=== PATIENT | female | born 1940 | race Caucasian/White ===

== ENCOUNTER 2024-11-25 14:46 | Inpatient (IN) | payer MEDICARE, OTHER ==
[~2024-11-25] VITALS: Ht 170.2 cm; Wt 81.6 kg
[2024-11-25] MEDS ORDERED: METF-866 PO (15:35)
[2024-11-25] MEDS ORDERED: HYDR100T27 PO (15:35)
[2024-11-25] MEDS ORDERED: DILT-2 PO (15:35)
[2024-11-25] MEDS ORDERED: MONT10TA33 PO (15:35)
[2024-11-25] MEDS ORDERED: VALS160T29 PO (15:35)
[2024-11-25] MEDS ORDERED: HYDR25TA86 PO (15:35)
[2024-11-25] MEDS ORDERED: CELE-85 PO (15:35)
[2024-11-25] MEDS ORDERED: OMEP1CAP25 PO (15:35)
[2024-11-25] MEDS ORDERED: FAMO40TA7 PO (15:35)
[2024-11-25] MEDS ORDERED: NEBI5TAB8 PO (15:35)
[2024-11-25] MEDS ORDERED: AZIL40TA PO (15:35)
[2024-11-25] MEDS ORDERED: APIX5TAB PO (15:35)
[2024-11-25] MEDS ORDERED: LIDO35.4 TP (15:35)
[2024-11-25] MEDS ORDERED: TRAM50TA2 PO (15:35)
[2024-11-25] MEDS ORDERED: GLIM2TAB PO (15:35)
[2024-11-25] MEDS ORDERED: MEMA14CA5 PO (15:35)
[2024-11-25] MEDS ORDERED: SITA100T PO (15:35)
[2024-11-25] MEDS ORDERED: GEMTESA PO (15:35)
[2024-11-25 16:10] LABS: BASOPHILS % (AUTO) 0.7 % (0.0-2.0); EOSINOPHILS # (AUTO) 0.2 K/uL (0.0-0.7); EOSINOPHILS % (AUTO) 3.1 % (0.0-7.0); HEMATOCRIT 31.1 % (31.2-41.9); HEMOGLOBIN 10.5 g/dL (10.9-14.3); LYMPHOCYTES # (AUTO) 2.2 K/uL (0.8-4.8); LYMPHOCYTES % (AUTO) 34.9 % (20.5-51.5); MEAN CORPUSCULAR HEMOGLOBIN 32.5 uug (24.7-32.8); MEAN CORPUSCULAR HGB CONC 34 g/dL (32.3-35.6); MEAN CORPUSCULAR VOLUME 96.2 fL (75.5-95.3); MONOCYTES # (AUTO) 0.7 K/uL (0.1-1.30); MONOCYTES % (AUTO) 11.2 % (0.0-11.0); NEUTROPHILS # (AUTO) 3.1 K/uL (1.8-8.9); NEUTROPHILS % (AUTO) 50.1 % (38.5-71.5); PLATELET COUNT (AUTO) 160 K/uL (179-408); RED BLOOD CELL COUNT(AUTO) 3.24 MIL/uL (3.63-4.92); RED CELL DISTRIBUTION WIDTH 13.7 % (12.3-17.7); WHITE BLOOD COUNT (AUTO) 6.2 K/uL (3.8-11.8)
[2024-11-25 16:13] LABS: DIFFERENTIAL COMMENT 1
[2024-11-25 16:15] LABS: CALCIUM 8.7 mg/dL (8.5-10.1); CARBON DIOXIDE 26 mmol/L (21-32); CHLORIDE 108 mmol/L (98-107); CREATININE 1.3 mg/dL (0.6-1.3); GLUCOSE 83 mg/dL (74-106); POTASSIUM 3.9 mmol/L (3.5-5.1); SODIUM SERUM 144 mmol/L (136-145); UREA NITROGEN, BLOOD 33 mg/dL (7-18)
[2024-11-25 16:26] LABS: ALANINE AMINOTRANSFERASE 17 U/L (14-59); ALBUMIN 3.4 g/dL (3.4-5.0); ALKALINE PHOSPHATASE 62 U/L (50-136); ASPARTATE AMINOTRANSFERASE 17 U/L (15-37); BILIRUBIN,DIRECT 0.1 mg/dL (0.0-0.2); BILIRUBIN,TOTAL 0.4 mg/dL (0.2-1.0); TOTAL PROTEIN, SERUM 6.4 g/dL (6.4-8.2)
[2024-11-25] MEDS: METOCLOPRAMIDE HCL 10 MG/2 ML VIAL IV ONE (17:16)
[2024-11-25] MEDS: MORPHINE SULFATE 2 MG/1 ML DISP.SYRIN IV ONE (17:16)
[2024-11-25] MEDS ORDERED: ACETAMINOPHEN 500 MG TABLET ONE (17:36)
[2024-11-25] MEDS: ACETAMINOPHEN 500 MG TABLET PO ONE ×2 (17:46)
[2024-11-25] MEDS ORDERED: TEMAZEPAM 15 MG CAPSULE PO PRN (21:00)
[2024-11-25] MEDS ORDERED: DOCUSATE SODIUM 250 MG CAPSULE PO SCH (21:00)
[2024-11-25] MEDS ORDERED: ONDANSETRON 4 MG/2 ML VIAL IV PRN (21:00)
[2024-11-25 21:03] VITALS: BP 154/64; TEMP 97.9; O2SAT 98
[2024-11-25] MEDS: APIXABAN 5 MG TABLET PO SCH (21:33)
[2024-11-25] MEDS: TRAMADOL HCL 50 MG TABLET PO PRN (21:40)
[2024-11-25] MEDS: HYDROCODONE/APAP 5-325MG TABLET PO PRN (22:50)
[2024-11-26 00:11] VITALS: BP 169/60; TEMP 97.8; O2SAT 96
[2024-11-26 04:31] VITALS: BP 166/71; TEMP 97.8; O2SAT 97
[2024-11-26] MEDS: hydrALAZINE HCL 20 MG/1 ML VIAL IV PRN (05:04)
[2024-11-26 07:35] LABS: BASOPHILS % (AUTO) 0.5 % (0.0-2.0); EOSINOPHILS # (AUTO) 0.2 K/uL (0.0-0.7); EOSINOPHILS % (AUTO) 3.4 % (0.0-7.0); HEMATOCRIT 31.1 % (31.2-41.9); HEMOGLOBIN 10.7 g/dL (10.9-14.3); LYMPHOCYTES # (AUTO) 1.9 K/uL (0.8-4.8); LYMPHOCYTES % (AUTO) 35.8 % (20.5-51.5); MEAN CORPUSCULAR HEMOGLOBIN 32.5 uug (24.7-32.8); MEAN CORPUSCULAR HGB CONC 35 g/dL (32.3-35.6); MEAN CORPUSCULAR VOLUME 94.1 fL (75.5-95.3); MONOCYTES # (AUTO) 0.5 K/uL (0.1-1.30); MONOCYTES % (AUTO) 9.8 % (0.0-11.0); NEUTROPHILS # (AUTO) 2.6 K/uL (1.8-8.9); NEUTROPHILS % (AUTO) 50.5 % (38.5-71.5); PLATELET COUNT (AUTO) 155 K/uL (179-408); WHITE BLOOD COUNT (AUTO) 5.2 K/uL (3.8-11.8)
[2024-11-26 07:39] LABS: DIFFERENTIAL COMMENT 1
[2024-11-26 07:58] VITALS: BP 138/63; TEMP 98; O2SAT 97
[2024-11-26 08:10] LABS: IRON, SERUM 53 ug/dL (50-175)
[2024-11-26 08:16] LABS: ALANINE AMINOTRANSFERASE 18 U/L (14-59); ALBUMIN 3.5 g/dL (3.4-5.0); ALKALINE PHOSPHATASE 56 U/L (50-136); ASPARTATE AMINOTRANSFERASE 15 U/L (15-37); BILIRUBIN,TOTAL 0.5 mg/dL (0.2-1.0); CALCIUM 8.9 mg/dL (8.5-10.1); CARBON DIOXIDE 25 mmol/L (21-32); CHLORIDE 107 mmol/L (98-107); CHOLESTEROL 191 mg/dL (<200); CREATININE 1.1 mg/dL (0.6-1.3); GLUCOSE 90 mg/dL (74-106); HDL CHOLESTEROL 49 mg/dL (40-60); MAGNESIUM 1.9 mg/dL (1.8-2.4); NT-PRO BNP 1722 pg/mL (0-125); PHOSPHOROUS 3.5 mg/dL (2.5-4.9); POTASSIUM 3.1 mmol/L (3.5-5.1); SODIUM SERUM 142 mmol/L (136-145); TOTAL PROTEIN, SERUM 6.6 g/dL (6.4-8.2); TRIGLYCERIDES 162 MG/DL (30-150); UREA NITROGEN, BLOOD 28 mg/dL (7-18)
[2024-11-26] MEDS: MEMANTINE HCL 5 MG TABLET PO SCH (08:25)
[2024-11-26] MEDS: CELECOXIB 200 MG CAPSULE PO SCH (08:25)
[2024-11-26] MEDS: GLIMEPIRIDE 2 MG TABLET PO SCH (08:25)
[2024-11-26] MEDS: FAMOTIDINE 20 MG TABLET PO SCH (08:25)
[2024-11-26] MEDS: DILTIAZEM HCL CD 120 MG CAP.SR.24H PO SCH (08:27)
[2024-11-26] MEDS: VALSARTAN 160 MG TABLET PO SCH (08:46)
[2024-11-26 08:58] LABS: THYROID STIMULATING HORMONE 5.025 mIU/mL (0.358-3.740)
[2024-11-26] MEDS ORDERED: hydrALAZINE HCL 25 MG TABLET PO SCH (09:00)
[2024-11-26] MEDS ORDERED: LIDOCAINE 5% OINT 35.44 GM TUBE TP SCH (09:00)
[2024-11-26] MEDS ORDERED: LIDOCAINE 5% PATCH TD SCH (09:00)
[2024-11-26] MEDS ORDERED: MEMANTINE HCL PO SCH (09:00)
[2024-11-26] MEDS ORDERED: LIDOCAINE 5% PATCH TD PRN (09:00)
[2024-11-26 11:41] VITALS: BP 141/61; TEMP 98.4; O2SAT 97
[2024-11-26] MEDS: POTASSIUM CHLORIDE 20 MEQ TAB.PRT.SR PO ONE (11:53)
[2024-11-26] MEDS: ACETAMINOPHEN 325 MG TABLET PO PRN (15:20)
[2024-11-26 16:53] VITALS: BP 133/78; TEMP 98.5; O2SAT 95
[2024-11-26] MEDS: METFORMIN XR 500 MG TAB.SR.24H PO SCH (17:16)
[2024-11-26] MEDS: MONTELUKAST SODIUM 10 MG TABLET PO SCH (17:51)
[2024-11-26] MEDS ORDERED: METFORMIN XR 500 MG TAB.SR.24H PO SCH ×2 (18:00)
[2024-11-26] MEDS: VITAMINS A AND D OINT 42 GM TUBE TP PRN (18:03)
[2024-11-26 19:48] VITALS: BP 152/55; TEMP 98.1; O2SAT 94
[2024-11-26] MEDS: DOCUSATE SODIUM 250 MG CAPSULE PO SCH (21:00)
[2024-11-26] MEDS: hydrALAZINE HCL 25 MG TABLET PO SCH (21:00)
[2024-11-27 00:11] VITALS: BP 140/54; TEMP 98.5; O2SAT 95
[2024-11-27 04:39] VITALS: BP 121/55; TEMP 97.5; O2SAT 97
[2024-11-27 07:18] LABS: BASOPHILS % (AUTO) 0.5 % (0.0-2.0); EOSINOPHILS # (AUTO) 0.2 K/uL (0.0-0.7); EOSINOPHILS % (AUTO) 3.1 % (0.0-7.0); HEMATOCRIT 31.3 % (31.2-41.9); HEMOGLOBIN 10.8 g/dL (10.9-14.3); LYMPHOCYTES # (AUTO) 1.7 K/uL (0.8-4.8); LYMPHOCYTES % (AUTO) 29.6 % (20.5-51.5); MEAN CORPUSCULAR HEMOGLOBIN 32.8 uug (24.7-32.8); MEAN CORPUSCULAR HGB CONC 35 g/dL (32.3-35.6); MEAN CORPUSCULAR VOLUME 94.8 fL (75.5-95.3); MONOCYTES # (AUTO) 0.6 K/uL (0.1-1.30); NEUTROPHILS # (AUTO) 3.1 K/uL (1.8-8.9); NEUTROPHILS % (AUTO) 55.8 % (38.5-71.5); PLATELET COUNT (AUTO) 168 K/uL (179-408); WHITE BLOOD COUNT (AUTO) 5.6 K/uL (3.8-11.8)
[2024-11-27 07:38] LABS: CALCIUM 9.1 mg/dL (8.5-10.1); CARBON DIOXIDE 24 mmol/L (21-32); CHLORIDE 106 mmol/L (98-107); CREATININE 1.2 mg/dL (0.6-1.3); GLUCOSE 77 mg/dL (74-106); MAGNESIUM 1.8 mg/dL (1.8-2.4); PHOSPHOROUS 3.4 mg/dL (2.5-4.9); POTASSIUM 4.1 mmol/L (3.5-5.1); SODIUM SERUM 141 mmol/L (136-145); UREA NITROGEN, BLOOD 30 mg/dL (7-18)
[2024-11-27 07:43] VITALS: BP 148/76; TEMP 97.8; O2SAT 100
[2024-11-27 07:48] LABS: DIFFERENTIAL COMMENT 1
[2024-11-27] MEDS: GLIMEPIRIDE 2 MG TABLET PO SCH (08:34)
[2024-11-27] MEDS: CELECOXIB 100 MG CAPSULE PO SCH (08:34)
[2024-11-27 11:57] VITALS: BP 130/93; TEMP 97.4; O2SAT 100
[2024-11-27] MEDS ORDERED: CELE100C PO (13:31)
[2024-11-27] MEDS ORDERED: HYDR-4077 PO (13:31)
[2024-11-27] MEDS ORDERED: ACET325T53 PO (13:31)
[2024-11-27] MEDS ORDERED: DOCU250C14 PO (13:31)
[2024-11-27] MEDS ORDERED: TEMA15CA PO (13:31)
[2024-11-27] MEDS ORDERED: METF-886 PO (13:31)
[2024-11-27] MEDS ORDERED: VITS42.53 TP (13:31)
[2024-11-27] MEDS ORDERED: MEMA10TA PO (15:55)
[2024-11-27] MEDS ORDERED: GLIM2TAB31 PO (16:01)
[2024-11-27] MEDS ORDERED: LIDO30AD10 TD (16:58)
[2024-11-27] MEDS ORDERED: METFORMIN XR 500 MG TAB.SR.24H PO SCH (18:00)
== END 2024-11-27 15:20 | DRG 913 ==
LOC: ER 14:46 → TELE3 19:54
PROVIDERS: ADMIT Internal Medicine; ATTEND Internal Medicine
DX: S09.8XXA Other specified injuries of head, initial encounter (principal); G92.8 Other toxic encephalopathy; N17.0 Acute kidney failure with tubular necrosis; I48.20 Chronic atrial fibrillation, unspecified; D68.59 Other primary thrombophilia; F03.93 Unspecified dementia, unspecified severity, with mood disturbance; I10 Essential (primary) hypertension; I48.91 Unspecified atrial fibrillation; R42 Dizziness and giddiness; W19.XXXA Unspecified fall, initial encounter; Y92.89 Other specified places as the place of occurrence of the external cause; R51.9 Headache, unspecified; E66.9 Obesity, unspecified; Z68.28 Body mass index [BMI] 28.0-28.9, adult; R26.81 Unsteadiness on feet; E87.6 Hypokalemia; D53.9 Nutritional anemia, unspecified; M15.9 Polyosteoarthritis, unspecified; E11.9 Type 2 diabetes mellitus without complications; G89.29 Other chronic pain; I45.10 Unspecified right bundle-branch block; E03.9 Hypothyroidism, unspecified; E78.5 Hyperlipidemia, unspecified; Z79.01 Long term (current) use of anticoagulants; Z74.09 Other reduced mobility; Z79.84 Long term (current) use of oral hypoglycemic drugs; Z91.012 Allergy to eggs; M19.012 Primary osteoarthritis, left shoulder
CPT/HCPCS: 36415; 70450; 71045; 82378; 83550; 83735; 84100; 84443; 85025; 85730; 93880; A9150; G0378; J0360

== ENCOUNTER 2024-11-27 10:55 | Inpatient (IN) | payer MEDICARE, OTHER ==
[~2024-11-27] VITALS: Ht 154.9 cm; Wt 81.6 kg
[~2024-11-27 10:55] MED LIST: APIX5TAB PO; AZIL40TA PO; CELE-85 PO; DILT-2 PO; FAMO40TA7 PO; GEMTESA PO; GLIM2TAB PO; HYDR100T27 PO; LIDO35.4 TP; MEMA14CA5 PO; METF-866 PO; MONT10TA33 PO; NEBI5TAB8 PO; OMEP1CAP25 PO; SITA100T PO; TRAM50TA2 PO; VALS160T29 PO
[2024-11-27 11:21] VITALS: BP 148/76; TEMP 97.8
[2024-11-27 12:01] VITALS: BP 148/76; TEMP 97.8
[2024-11-27] MEDS ORDERED: VITS42.53 TP (13:31)
[2024-11-27] MEDS ORDERED: TEMA15CA PO (13:31)
[2024-11-27] MEDS ORDERED: ACET325T53 PO (13:31)
[2024-11-27] MEDS ORDERED: METF-886 PO (13:31)
[2024-11-27] MEDS ORDERED: HYDR-4077 PO (13:31)
[2024-11-27] MEDS ORDERED: DOCU250C14 PO (13:31)
[2024-11-27] MEDS ORDERED: CELE100C PO (13:31)
[2024-11-27 15:45] VITALS: BP 144/55; TEMP 97.6; O2SAT 95
[2024-11-27] MEDS ORDERED: MEMA10TA PO (15:55)
[2024-11-27] MEDS ORDERED: GLIM2TAB31 PO (16:01)
[2024-11-27] MEDS ORDERED: TEMAZEPAM 15 MG CAPSULE PO PRN (16:45)
[2024-11-27] MEDS ORDERED: ACETAMINOPHEN 325 MG TABLET-SA PATIENTS-PAIN ONLY PO PRN (16:45)
[2024-11-27] MEDS ORDERED: LIDOCAINE 5% OINT 35.44 GM TUBE TP PRN (16:45)
[2024-11-27] MEDS ORDERED: LIDO30AD10 TD (16:58)
[2024-11-27] MEDS ORDERED: MEMANTINE HCL 10 MG TABLET PO SCH (17:00)
[2024-11-27] MEDS ORDERED: LIDOCAINE 5% PATCH TD PRN (17:00)
[2024-11-27] MEDS: METFORMIN XR 500 MG TAB.SR.24H PO SCH (18:04)
[2024-11-27] MEDS: MEMANTINE HCL 5 MG TABLET PO SCH (18:05)
[2024-11-27] MEDS: MONTELUKAST SODIUM 10 MG TABLET PO SCH (18:05)
[2024-11-27] MEDS: APIXABAN 5 MG TABLET PO SCH (18:08)
[2024-11-27] MEDS: hydrALAZINE HCL 50 MG TABLET PO SCH (18:12)
[2024-11-27] MEDS ORDERED: ZOLPIDEM 5 MG TABLET PO PRN ×2 (18:15→22:00)
[2024-11-27 19:53] VITALS: BP 122/59; TEMP 97.9; O2SAT 96
[2024-11-27] MEDS: DOCUSATE SODIUM 250 MG CAPSULE PO SCH (21:24)
[2024-11-27] MEDS: CELECOXIB 100 MG CAPSULE PO SCH (21:24)
[2024-11-27] MEDS: MIRTAZAPINE 15 MG TABLET PO SCH (21:25)
[2024-11-28 06:32] VITALS: BP 164/62; TEMP 97.4; O2SAT 98
[2024-11-28] MEDS: GLIMEPIRIDE 2 MG TABLET PO SCH (07:43)
[2024-11-28] MEDS: VALSARTAN 160 MG TABLET PO SCH (08:06)
[2024-11-28] MEDS: FAMOTIDINE 20 MG TABLET PO SCH (08:10)
[2024-11-28] MEDS: DILTIAZEM HCL CD 120 MG CAP.SR.24H PO SCH (08:10)
[2024-11-28 08:17] VITALS: BP 165/69; TEMP 97.5; O2SAT 98
[2024-11-28] MEDS: ACETAMINOPHEN 325 MG TABLET PO PRN (15:23)
[2024-11-28 15:56] VITALS: BP 139/57; TEMP 97.6; O2SAT 98
[2024-11-28] MEDS: TRAMADOL HCL 50 MG TABLET PO PRN (18:57)
[2024-11-28] MEDS: VITAMINS A AND D OINT 42 GM TUBE TP PRN (20:47)
[2024-11-28] MEDS: REMEDY ESSENTIAL ZINC PASTE 113 GM TOP PRN (20:48)
[2024-11-28 21:00] VITALS: BP 143/70; TEMP 97.9; O2SAT 98
[2024-11-29 06:16] VITALS: BP 158/58; TEMP 97.8; O2SAT 95
[2024-11-29 08:00] VITALS: BP 146/80; TEMP 97.6; O2SAT 95
[2024-11-29 16:00] VITALS: BP 107/57; TEMP 98.5; O2SAT 97
[2024-11-29 20:20] VITALS: BP 125/62; TEMP 97.9; O2SAT 94
[2024-11-30 06:11] VITALS: BP 117/45; TEMP 97.7; O2SAT 97
[2024-11-30 08:00] VITALS: BP 163/64; TEMP 97.8; O2SAT 99
[2024-11-30 16:11] VITALS: BP 115/68; TEMP 97.8; O2SAT 98
[2024-11-30] MEDS: OLOPATADINE 0.1% OPHT DROP 5 ML BOTTLE RIGHTEYE SCH (18:21)
[2024-11-30] MEDS ORDERED: ACETAMINOPHEN/CODEINE 300-30 MG TABLET PO PRN (18:30)
[2024-11-30 20:00] VITALS: BP 134/59; TEMP 97.2; O2SAT 95
[2024-12-01 05:00] VITALS: BP 134/64; TEMP 97.5; O2SAT 95
[2024-12-01 06:46] LABS: BASOPHILS % (AUTO) 0.9 % (0.0-2.0); EOSINOPHILS # (AUTO) 0.3 K/uL (0.0-0.7); EOSINOPHILS % (AUTO) 5.1 % (0.0-7.0); HEMATOCRIT 33.5 % (31.2-41.9); HEMOGLOBIN 11.4 g/dL (10.9-14.3); LYMPHOCYTES # (AUTO) 2.1 K/uL (0.8-4.8); LYMPHOCYTES % (AUTO) 37.2 % (20.5-51.5); MEAN CORPUSCULAR HEMOGLOBIN 32.5 uug (24.7-32.8); MEAN CORPUSCULAR HGB CONC 34 g/dL (32.3-35.6); MEAN CORPUSCULAR VOLUME 96.1 fL (75.5-95.3); MONOCYTES # (AUTO) 0.6 K/uL (0.1-1.30); MONOCYTES % (AUTO) 10.3 % (0.0-11.0); NEUTROPHILS # (AUTO) 2.6 K/uL (1.8-8.9); NEUTROPHILS % (AUTO) 46.5 % (38.5-71.5); PLATELET COUNT (AUTO) 186 K/uL (179-408); RED BLOOD CELL COUNT(AUTO) 3.49 MIL/uL (3.63-4.92); RED CELL DISTRIBUTION WIDTH 14.1 % (12.3-17.7); WHITE BLOOD COUNT (AUTO) 5.7 K/uL (3.8-11.8)
[2024-12-01 06:48] LABS: DIFFERENTIAL COMMENT 1
[2024-12-01 07:12] LABS: ALANINE AMINOTRANSFERASE 16 U/L (14-59); ALBUMIN 3.3 g/dL (3.4-5.0); ALKALINE PHOSPHATASE 65 U/L (50-136); ASPARTATE AMINOTRANSFERASE 13 U/L (15-37); BILIRUBIN,TOTAL 0.4 mg/dL (0.2-1.0); CARBON DIOXIDE 27 mmol/L (21-32); CHLORIDE 106 mmol/L (98-107); CREATININE 1.2 mg/dL (0.6-1.3); GLUCOSE 97 mg/dL (74-106); MAGNESIUM 1.8 mg/dL (1.8-2.4); PHOSPHOROUS 3.9 mg/dL (2.5-4.9); POTASSIUM 4.6 mmol/L (3.5-5.1); SODIUM SERUM 141 mmol/L (136-145); TOTAL PROTEIN, SERUM 6.5 g/dL (6.4-8.2); UREA NITROGEN, BLOOD 29 mg/dL (7-18)
[2024-12-01 08:00] VITALS: BP 126/73; TEMP 98.1; O2SAT 99
[2024-12-01 15:57] VITALS: BP_SYST 146; BP_SYST 160; BP_DIAS 54; BP_DIAS 69; TEMP 97.8; O2SAT 96
[2024-12-01 21:16] VITALS: BP 138/66; TEMP 97.7; O2SAT 94
[2024-12-02 07:35] VITALS: BP 156/76; TEMP 97.7; O2SAT 92
[2024-12-02 07:48] VITALS: BP 152/76; TEMP 97.6; O2SAT 99
[2024-12-02 09:00] VITALS: BP 101/68
== END 2024-12-02 14:00 | disposition home health service (06) | DRG 91 ==
LOC: UNDOADMIN 10:55
PROVIDERS: ADMIT Physical Medicine & Rehabilitation Pain Medicine; ATTEND Physical Medicine & Rehabilitation Pain Medicine
DX: G92.8 Other toxic encephalopathy (principal); N17.0 Acute kidney failure with tubular necrosis; I48.20 Chronic atrial fibrillation, unspecified; F03.93 Unspecified dementia, unspecified severity, with mood disturbance; R53.1 Weakness; I10 Essential (primary) hypertension; Z91.81 History of falling; Z79.01 Long term (current) use of anticoagulants; E11.9 Type 2 diabetes mellitus without complications; Z91.012 Allergy to eggs; Z91.011 Allergy to milk products; Z91.013 Allergy to seafood; M19.012 Primary osteoarthritis, left shoulder; G89.29 Other chronic pain; D53.9 Nutritional anemia, unspecified; E66.9 Obesity, unspecified; Z68.34 Body mass index [BMI] 34.0-34.9, adult; I45.10 Unspecified right bundle-branch block; E78.5 Hyperlipidemia, unspecified; E03.9 Hypothyroidism, unspecified; F43.21 Adjustment disorder with depressed mood; R26.81 Unsteadiness on feet
CPT/HCPCS: 36415; 83735; 84100; 85025; A4663

== ENCOUNTER 2024-12-16 15:07 | Emergency (ER) | payer MEDICARE, OTHER ==
[~2024-12-16] VITALS: Ht 154.9 cm; Wt 81.6 kg
[~2024-12-16 15:07] MED LIST changes: +ACET325T53 PO; -CELE-85 PO; +CELE100C PO; +DOCU250C14 PO; -GEMTESA PO; -GLIM2TAB PO; +GLIM2TAB31 PO; +HYDR-4077 PO; -HYDR100T27 PO; +LIDO30AD10 TD; -LIDO35.4 TP; +MEMA10TA PO; -MEMA14CA5 PO; -METF-866 PO; +METF-886 PO; -NEBI5TAB8 PO; -OMEP1CAP25 PO; -SITA100T PO; +TEMA15CA PO; +VITS42.53 TP
[2024-12-16] MEDS ORDERED: ACET15SO5 LEFT EAR (16:10)
[2024-12-16] MEDS ORDERED: ACET15SO5 RIGHT EAR (16:10)
[2024-12-16 16:15] VITALS: BP 134/86; TEMP 97.8; O2SAT 97
== END 2024-12-16 16:15 | disposition home or self-care (01) ==
LOC: ER 15:07
DX: S80.02XA Contusion of left knee, initial encounter (principal); H66.90 Otitis media, unspecified, unspecified ear; H93.19 Tinnitus, unspecified ear; E11.9 Type 2 diabetes mellitus without complications; M17.12 Unilateral primary osteoarthritis, left knee; Z79.01 Long term (current) use of anticoagulants; Z79.84 Long term (current) use of oral hypoglycemic drugs; Z79.899 Other long term (current) drug therapy; Z91.012 Allergy to eggs; Z91.011 Allergy to milk products; Z91.013 Allergy to seafood; W18.39XA Other fall on same level, initial encounter; Y93.89 Activity, other specified; Y92.89 Other specified places as the place of occurrence of the external cause; Y99.8 Other external cause status
CPT/HCPCS: 73560; A4606; A4663